=== PATIENT | female | born 1975 | race African-American/Black ===

== ENCOUNTER 2021-08-26 06:46 | Emergency (ER) | payer BC ==
[2021-08-26] MEDS ORDERED: Ibuprofen 200 MG TAB ONE (07:37)
[2021-08-26] MEDS ORDERED: Acetaminophen 500 MG TAB ONE (07:37)
== END 2021-08-26 08:46 | disposition home or self-care (01) ==
LOC: ERS 06:46
DX: S63.502A Unspecified sprain of left wrist, initial encounter (principal); X50.0XXA Overexertion from strenuous movement or load, initial encounter
CPT/HCPCS: 99283

== ENCOUNTER 2021-10-11 07:53 | Emergency (ER) | payer BC ==
[2021-10-11 09:35] LABS: #Eosinphils 0.2 thou/uL (0.0-0.7); #Lymphocytes 1.8 thou/uL (1.20-3.40); #Monocytes 0.5 thou/uL (0.11-0.59); #Neutrophils 2.9 thou/uL (1.40-6.50); %Basophils 0.6 % (0.0-1.0); %Eosinophils 3.7 % (0.0-10.0); %Lymphocytes 33.4 % (21.0-51.0); %Monocytes 9.9 % (0.0-10.0); %Neutrophils 52.4 % (42.0-75.0); Anisocytosis SLIGHT = 6-15 cells (100X) (0-5/hpf); Hemoglobin 9.1 g/dL (12.0-16.0); Hypochromia SLIGHT = 6-15 cells (100X) (0-5/hpf); MDiff Complete? YES; Mean Corpuscular HGB CONC 29.7 g/dL (32.0-36.0); Mean Corpuscular Hemoglobin 20.6 pg (27.0-31.0); Mean Corpuscular Volume 69.3 fL (78.0-98.0); Mean Platelet Volume 11.1 fL (7.4-10.4); Microcytosis MODERATE=15-30 cells (100X) (0-5/hpf); Platelet Count 372 thou/uL (130-400); Platelet Morphology Comment Appears Adequate; Polychromasia SLIGHT = 2-3 cells (100X) (0-2/hpf); RBC Distribution Width 19.2 % (11.5-14.5); White Blood Cell (WBC) Count 5.5 thou/uL (4.8-10.8)
[2021-10-11 09:49] LABS: ALT (SGPT) 11 U/L (8-55); AST (SGOT) 14 U/L (5-34); Albumin 3.7 g/dL (3.5-5.0); Alkaline Phosphatase 75 U/L (40-110); Anion Gap 13 mmol/L (10-20); BUN (Urea Nitrogen) 10 mg/dL (7.0-18.7); Bilirubin, Total 0.4 mg/dL (0.2-1.2); Calc. Creatinine Clearance 0 mL/min (70-130); Calcium 8.9 mg/dL (7.8-10.44); Carbon Dioxide 25 mmol/L (22-29); Chloride 105 mmol/L (98-107); Globulin 3.4 g/dL (2.4-3.5); Glucose 96 mg/dL (70-105); Lipase 17 U/L (8-78); Potassium 4.1 mmol/L (3.5-5.1); Protein, Total 7.1 g/dL (6.0-8.3); Sodium 139 mmol/L (136-145)
[2021-10-11 13:06] LABS: Troponin I Less than 0.010 ng/mL (< 0.028)
== END 2021-10-11 14:05 | disposition home or self-care (01) ==
LOC: ERS 07:53
DX: R07.89 Other chest pain (principal)
CPT/HCPCS: 36415; 71045; 80053; 83690; 84484; 85025; 93005; 94760

== ENCOUNTER 2023-03-06 16:34 | Emergency (ER) | payer SELFPAY ==
[2023-03-06] MEDS ORDERED: Ketorolac Tromethamine 30 MG/ML VIAL ONE (18:56)
== END 2023-03-06 20:13 | disposition home or self-care (01) ==
LOC: ERS 16:34
DX: M79.671 Pain in right foot (principal)
CPT/HCPCS: 96372; J1885